=== PATIENT | male | born 1985 | race Two or more races ===

== ENCOUNTER 2020-01-29 20:07 | Emergency (ER) | payer MEDICAID ==
[~2020-01-29] VITALS: Ht 177.8 cm; Wt 83.9 kg
[2020-01-29 20:24] VITALS: BP 148/101
== END 2020-01-29 20:43 | disposition home or self-care (01) ==
LOC: ER 20:13
DX: M54.2 Cervicalgia (principal); M54.6 Pain in thoracic spine; R51.9 Headache, unspecified; I10 Essential (primary) hypertension; V49.59XA Passenger injured in collision with other motor vehicles in traffic accident, initial encounter; Y93.89 Activity, other specified; Y92.488 Other paved roadways as the place of occurrence of the external cause; Y99.8 Other external cause status

== ENCOUNTER 2020-03-16 19:08 | Emergency (ER) | payer MEDICAID ==
[~2020-03-16] VITALS: Ht 177.8 cm; Wt 86.2 kg
[2020-03-16 20:05] VITALS: BP 151/109
--- NOTE | 2020-03-16 20:25 | NUR ---
X RAY IN PROCESS
--- NOTE | 2020-03-16 20:33 | NUR ---
URINE COLLECTED AND SENT TO LAB
--- NOTE | 2020-03-16 20:39 | NUR ---
EKG AT BEDSIDE
[2020-03-16] MEDS ORDERED: MECL-159 PO (21:31)
--- NOTE | 2020-03-16 21:42 | NUR ---
Patient discharged to home in stable condition. Written and verbal after care instructions given. Patient verbalizes understanding of instruction.
== END 2020-03-16 21:43 | disposition home or self-care (01) ==
LOC: ER 19:09
DX: H81.10 Benign paroxysmal vertigo, unspecified ear (principal); F19.10 Other psychoactive substance abuse, uncomplicated; I10 Essential (primary) hypertension
CPT/HCPCS: 71045-TC

== ENCOUNTER 2020-11-14 07:32 | Emergency (ER) | payer MEDICAID ==
[~2020-11-14] VITALS: Ht 177.8 cm; Wt 81.6 kg
[~2020-11-14 07:32] MED LIST: MECL-159 PO
--- NOTE | 2020-11-14 08:02 | NUR ---
THE PATIENT BIBS FOR C/O L WRIST PAIN S/P TRIP AND FALL LAST NIGHT. DENIES HEAD INJURY.PATIENT ADMMITS TO DRINKING LAST NIGHT. RATES PAIN 9/10. NO APPARENT DEFORMITY NOTED. WILL CONTINUE TO MONITOR THE PATIENT.
[2020-11-14] MEDS ORDERED: KETOROLAC TROMETHAMINE INJ 30 MG/ML VIAL ONE (08:13)
--- NOTE | 2020-11-14 08:13 | NUR ---
X-RAY TECH AT THE BEDSIDE
[2020-11-14] MEDS ORDERED: KETOROLAC TROMETHAMINE INJ 30 MG/ML VIAL IM ONE (08:30)
[2020-11-14] MEDS ORDERED: TRAMADOL HCL 50 MG TABLET PO ONE (09:30)
[2020-11-14] MEDS ORDERED: TRAM50TA2 PO (09:36)
[2020-11-14] MEDS ORDERED: TRAMADOL HCL 50 MG TABLET ONE (09:45)
--- NOTE | 2020-11-14 10:05 | NUR ---
Patient discharged to home in stable condition. Written and verbal after care instructions given. Patient verbalizes understanding of instruction.
[2020-11-14 10:07] VITALS: BP 135/99
== END 2020-11-14 10:08 | disposition home or self-care (01) ==
LOC: ER 07:39
DX: S62.015A Nondisplaced fracture of distal pole of navicular [scaphoid] bone of left wrist, initial encounter for closed fracture (principal); I10 Essential (primary) hypertension; Z79.899 Other long term (current) drug therapy; W01.0XXA Fall on same level from slipping, tripping and stumbling without subsequent striking against object, initial encounter; Y93.89 Activity, other specified; Y92.89 Other specified places as the place of occurrence of the external cause; Y99.8 Other external cause status
CPT/HCPCS: 29125; 73080; 73090; 73110; 96372; 99284; J1885